=== PATIENT | female | born 1970 | race Caucasian/White ===

== ENCOUNTER 2020-12-30 02:18 | Emergency (ER) | payer OTHER ==
[~2020-12-30] VITALS: Ht 162.6 cm; Wt 81.7 kg
[~2020-12-30 02:18] MED LIST: LEXAPRO 10 MG T10 MG PO; NEXIUM20 MG PO; NORCO 5-325 TA1 EACH PO
[2020-12-30] MEDS ORDERED: ALLERGY MED (02:35)
[2020-12-30] MEDS ORDERED: CALCIUM + D SO1 EACH PO (02:35)
[2020-12-30] MEDS ORDERED: MELOXICAM15 MG PO (02:36)
[2020-12-30 02:57] LABS: ABSOLUTE BASOPHILS 0.1 thou/uL (0.0-0.2); ABSOLUTE EOSINOPHILS 0.1 thou/uL (0.0-0.7); ABSOLUTE LYMPHOCYTES 1.7 thou/uL (0.8-5.3); ABSOLUTE MONOCYTES 0.6 thou/uL (0.0-1.2); ABSOLUTE NEUTROPHILS 14.1 thou/uL (1.6-8.1); BASOPHILS 0.4 %; EOSINOPHILS 0.8 %; HEMATOCRIT 42.1 % (37.0-47.0); HEMOGLOBIN 13.9 gm/dL (12.0-15.0); LYMPHOCYTES 10.5 %; MCH 29.3 pg (26.0-34.0); MCV 88.9 fL (80.0-100.0); MONOCYTES 3.6 %; NUCLEATED RBCS 0 /100WBC; PLATELET COUNT* 249 thou/uL (150-400); POLYS 84.7 %; RBC 4.74 mil/uL (4.20-5.00); RDW-CV 13.2 % (10.5-14.5); WBC 16.6 thou/uL (4.0-11.0)
[2020-12-30 03:18] LABS: CALCIUM 8.9 mg/dL (8.5-10.1); CREATININE 0.8 mg/dL (0.6-1.3); POTASSIUM 3.7 mmol/L (3.5-5.1)
[2020-12-30 03:22] LABS: ALBUMIN 3.8 g/dL (3.4-5.0); TOTAL BILIRUBIN 0.3 mg/dL (<0.1-1.0); TOTAL PROTEIN 7.1 g/dL (6.4-8.2)
[2020-12-30 04:09] LABS: URINE BILIRUBIN NEGATIVE (Negative); URINE BLOOD NEGATIVE (Negative); URINE CLARITY CLEAR; URINE COLOR YELLOW; URINE GLUCOSE-RANDOM NEGATIVE (Negative); URINE KETONES NEGATIVE (Negative); URINE LEUKOCYTES-REFLEX NEGATIVE (Negative); URINE NITRITE-REFLEX NEGATIVE (Negative); URINE PROTEIN NEGATIVE (Negative); URINE SPECIFIC GRAVITY >= 1.030 (1.005-1.030); URINE UROBILINOGEN 0.2 E.U./dl (0.2-1.0)
[2020-12-30] MEDS ORDERED: ZOFRAN ODT4 MG PO (04:25)
[2020-12-30] MEDS ORDERED: NORCO5 PO (04:25)
[2020-12-30 04:57] VITALS: BP 111/63
== END 2020-12-30 04:57 | disposition home or self-care (01) ==
LOC: M.ERS 02:18
PROVIDERS: Emergency Medicine
DX: R11.2 Nausea with vomiting, unspecified (principal); Z20.822 Contact with and (suspected) exposure to COVID-19; R19.7 Diarrhea, unspecified; K21.9 Gastro-esophageal reflux disease without esophagitis; F17.210 Nicotine dependence, cigarettes, uncomplicated; Z79.899 Other long term (current) drug therapy